=== PATIENT | female | born 1955 | race Two or more races ===

== ENCOUNTER 2018-01-06 09:55 | Outpatient (CLI) | payer OTHER | END 2018-01-06 10:06 | disposition home or self-care (01) | LOC: RAD 09:55 | DX: R91.8 Other nonspecific abnormal finding of lung field (principal) ==

== ENCOUNTER 2021-07-05 11:00 | Outpatient (CLI) | payer OTHER | END 2021-07-05 11:20 | disposition home or self-care (01) | LOC: PPH VACUNA 11:00 | PROVIDERS: ATTEND Emergency Medicine Pediatric Emergency Medicine | DX: Z23 Encounter for immunization (principal) ==

== ENCOUNTER 2023-06-30 08:53 | Outpatient (CLI) | payer OTHER | END 2023-06-30 09:05 | disposition home or self-care (01) | LOC: RAD 08:53 | PROVIDERS: ATTEND Internal Medicine Hematology & Oncology | DX: J44.9 Chronic obstructive pulmonary disease, unspecified (principal) ==

== ENCOUNTER 2024-11-21 08:14 | Outpatient (CLI) | payer OTHER | END 2024-11-21 08:18 | disposition home or self-care (01) | LOC: RAD 08:14 | PROVIDERS: ATTEND Internal Medicine | DX: I10 Essential (primary) hypertension (principal); Z01.810 Encounter for preprocedural cardiovascular examination; E03.9 Hypothyroidism, unspecified; E78.9 Disorder of lipoprotein metabolism, unspecified; E55.9 Vitamin D deficiency, unspecified; G62.9 Polyneuropathy, unspecified; N41.0 Acute prostatitis ==

== ENCOUNTER 2025-07-09 08:08 | Outpatient (CLI) | payer OTHER | END 2025-07-09 08:23 | disposition home or self-care (01) | LOC: SONOGRAMA 08:08 | PROVIDERS: ATTEND Internal Medicine Hepatology | DX: K80.00 Calculus of gallbladder with acute cholecystitis without obstruction (principal) ==

== ENCOUNTER 2025-07-09 09:15 | Outpatient (CLI) | payer OTHER ==
[2025-07-09 10:03] LABS: BASO % 0.4 % (0.1-1.2); EOS # 0.12 (0.04-0.54); EOS % 2.6 % (0.7-7.0); LYMPH # 1.55 (1.18-3.74); LYMPH % 33.0 % (19.3-53.1); MEAN PLATELET VOLUME 11.50 fl (9.4-12.4); MONO # 0.45 (0.24-0.82); MONO % 9.6 % (4.7-12.5); NEUT # 2.54 (1.56-6.13); NEUT % 54.2 % (34.0-71.1); RED CELL DISTRIBUTION WIDTH 13.3 % (11.6-14.4)
[2025-07-09 10:27] LABS: URINE APPEARANCE Clear; URINE BILIRRUBIN Negative (NEGATIVE); URINE BLOOD Negative; URINE COLOR Yellow; URINE GLUCOSE Negative (NEGATIVE); URINE KETONE Negative (NEGATIVE); URINE LEUKOCYTE Negative; URINE NITRATE Negative; URINE PROTEIN Negative (NEGATIVE); URINE UROBILINOGEN 0.2 E.U./dl
[2025-07-09 10:31] LABS: URINE BACTERIA 8.0 uL (0.0-1933); URINE RBC 2.9 uL (0.0-20.8)
[2025-07-09 10:37] LABS: URINE CAST 0.14 uL (0.0-1.40); URINE EPITHELIAL CELLS 0.1 uL (0.0-38.8); URINE WBC 1.5 uL (0.0-23.2)
[2025-07-09 11:40] LABS: ALT/SGPT 25.0 U/L (12-78); AST/SGOT 14.0 U/L (15-37); BILIRUBIN TOTAL 1.35 mg/dL (0.3-1.2); BUN CREA RATIO 22.0 (7.0-25.0); CHOL HDL RATIO 5.8 (0-5.0); CREATININE SERUM 1.01 mg/dL (0.70-1.30); GFR 73.24; GLOBULINA 3.1 G/DL (2.4-3.5); GLUCOSE FASTING 116.0 mg/dL (65-100); HDL 36.0 mg/dl (40-60); LDL 138.0 mg/dl (0-130); OSMOLALITY SERUM 289.0 MOSM/KG (275-295); PROSTATIC SPECIFIC ANTIGEN 0.882 NG/ML (0.010-4.00); T3 UPTAKE 34.0 % (33-40); T4 TOTAL 5.84 UG/DL (4.5-12.1); TSH 1.98 uIU/mL (0.358-3.74); VLDL 32.0 (0-39)
== END 2025-07-09 09:27 | disposition home or self-care (01) ==
LOC: LAB 09:15
PROVIDERS: ATTEND Emergency Medicine Pediatric Emergency Medicine
DX: E03.9 Hypothyroidism, unspecified (principal); E78.9 Disorder of lipoprotein metabolism, unspecified; E55.9 Vitamin D deficiency, unspecified; G62.9 Polyneuropathy, unspecified; N41.0 Acute prostatitis; Z01.810 Encounter for preprocedural cardiovascular examination; E11.9 Type 2 diabetes mellitus without complications; N40.0 Benign prostatic hyperplasia without lower urinary tract symptoms